=== PATIENT | female | born 1990 | race Two or more races ===

== ENCOUNTER 2023-04-10 08:27 | Emergency (ER) | payer OTHER ==
[~2023-04-10] VITALS: Ht 165.1 cm; Wt 71.6 kg
[2023-04-10 09:18] VITALS: BP 103/61
[2023-04-10] MEDS ORDERED: DexAMETHasone SOD PHOS 10MG/1ML VIAL INJ IM ONE (09:30)
[2023-04-10] MEDS ORDERED: diphenhdrAMINE HCL 50 MG/1 ML VL IM ONE (09:30)
[2023-04-10] MEDS ORDERED: DIPH25CA66 PO (09:37)
[2023-04-10] MEDS ORDERED: PRED20TA2 PO (09:37)
[2023-04-10] MEDS ORDERED: ONDANSETRON ODT 4 MG TAB PO ONE (10:00)
== END 2023-04-10 10:20 | disposition home or self-care (01) ==
LOC: ER 08:27
DX: T78.40XA Allergy, unspecified, initial encounter (principal); Z88.6 Allergy status to analgesic agent; X58.XXXA Exposure to other specified factors, initial encounter
CPT/HCPCS: 96372; 99284; J1100; J1200; Q0162

== ENCOUNTER 2023-04-17 13:10 | Emergency (ER) | payer OTHER ==
[~2023-04-17] VITALS: Ht 165.1 cm; Wt 72.1 kg
[~2023-04-17 13:10] MED LIST: DIPH25CA66 PO; PRED20TA2 PO
[2023-04-17] MEDS ORDERED: DexAMETHasone SOD PHOS 10MG/1ML VIAL INJ IM ONE (15:15)
[2023-04-17] MEDS ORDERED: LORA-622 PO (15:28)
[2023-04-17] MEDS ORDERED: HYDR-3682 PO (15:28)
[2023-04-17 18:07] VITALS: BP 114/72
== END 2023-04-17 18:10 | disposition home or self-care (01) ==
LOC: ER 13:10
DX: T78.40XA Allergy, unspecified, initial encounter (principal); Z88.5 Allergy status to narcotic agent; Z88.8 Allergy status to other drugs, medicaments and biological substances; X58.XXXA Exposure to other specified factors, initial encounter
CPT/HCPCS: 96372; 99283; J1100